=== PATIENT | female | born 1955 | race Caucasian/White ===

== ENCOUNTER → 2016-05-06 | Outpatient (CLI) | payer OTHER ==
[2016-05-06 13:09] LABS: BASO % 0.2 %; BASO ABS # 0.01 K/uL (0-0.2); COMPLETE YES; HEMATOCRIT 42.2 % (37-47); IG% 0.2 %; LYMPH % 45.5 %; LYMPH ABS # 1.85 K/uL (1.2-3.4); MEAN CELL VOLUME 88.3 fL (80-100); MEAN CORPUSCULAR HEMOGLOBIN 29.9 pg (25-34); MEAN CORPUSCULAR HGB CONC 33.9 g/dl (32-36); MONO % 14.7 %; NEUT % 38.4 %; PLATELET COUNT 206 K/uL (130-400); RED BLOOD COUNT 4.78 M/uL (4.2-5.4); WHITE BLOOD COUNT 4.07 K/uL (4.8-10.8)
[2016-05-06 14:07] LABS: ALT/SGPT 32 U/L (12-78); BLOOD UREA NITROGEN 13 mg/dl (7-18); BUN/CREATININE RATIO 33.3 (10-20); CALCIUM 9.7 mg/dl (8.5-10.1); CARBON DIOXIDE 18 mmol/L (21-32); CHLORIDE 105 mmol/L (98-107); GLUCOSE 64 mg/dl (70-99); POTASSIUM 3.7 mmol/L (3.5-5.1); SODIUM 140 mmol/L (136-145)
[2016-05-06 14:10] LABS: ALB/GLOB RATIO 1.1 (0.9-2); ALKALINE PHOSPHATASE 46 U/L (45-117); AST/SGOT 21 U/L (15-37); FERRITIN 97.5 ng/ml (8.0-388.0); TOTAL IRON BINDING CAPACITY 237 mcg/dl (250-450)
--- NOTE | 2016-05-10 13:38 | CODING QUERY MEDICAL NECESSITY ---
SUPPORTING DIAGNOSIS NEEDED A supporting diagnosis is required for the test/procedure performed on this patient in order for us to be reimbursed by the patient's insurance. Please provide a supporting diagnosis for the following test/procedure listed below next to the test name along with your signature. *If there is no additional diagnosis for this patient that would support the following test/procedure please document that below next to the test/procedure. Test(s)/Procedure(s) that require a supporting diagnosis: DOS 05/06 * Vitamin B12 DIAGNOSIS: Provider Signature: Date: Thank you [facility] Once completed, please kindly fax back to [phone] For questions please call [phone]
== END | disposition home or self-care (01) ==
LOC: C.LAB1850 11:36
PROVIDERS: ATTEND Internal Medicine Endocrinology, Diabetes & Metabolism
DX: R53.81 Other malaise (principal); H93.239 Hyperacusis, unspecified ear; E03.9 Hypothyroidism, unspecified; N95.1 Menopausal and female climacteric states; E61.1 Iron deficiency; N94.819 Vulvodynia, unspecified; E55.9 Vitamin D deficiency, unspecified; D51.3 Other dietary vitamin B12 deficiency anemia

== ENCOUNTER → 2016-10-13 | Outpatient (CLI) | payer OTHER ==
[2016-10-13 12:45] LABS: THYROID STIMULATING HORMONE 0.033 uIu/ml (0.300-4.500)
[2016-10-18 01:29] LABS: TESTOSTERONE,TOTAL 34 ng/dL (2-45)
== END | disposition home or self-care (01) ==
LOC: C.LAB1850 10:26
PROVIDERS: ATTEND Internal Medicine Endocrinology, Diabetes & Metabolism
DX: R53.81 Other malaise (principal); H93.239 Hyperacusis, unspecified ear; E03.9 Hypothyroidism, unspecified; E61.1 Iron deficiency; N95.1 Menopausal and female climacteric states; N94.819 Vulvodynia, unspecified

== ENCOUNTER → 2016-10-18 | Outpatient (CLI) | payer OTHER | END | disposition home or self-care (01) | LOC: C.LABSPEC 13:57 | PROVIDERS: ATTEND Internal Medicine Endocrinology, Diabetes & Metabolism | DX: R53.81 Other malaise (principal); H93.239 Hyperacusis, unspecified ear; E03.9 Hypothyroidism, unspecified; E61.1 Iron deficiency; N95.1 Menopausal and female climacteric states; N94.819 Vulvodynia, unspecified ==